=== PATIENT | male | born 1975 | race African-American/Black ===

== ENCOUNTER 2017-08-17 04:02 | Emergency (ER) | payer OTHER ==
[~2017-08-17] VITALS: Ht 177.8 cm; Wt 93.6 kg
[2017-08-17 04:04] VITALS: BP 134/89
[2017-08-17] MEDS ORDERED: CIPR100T3 PO (04:27)
== END 2017-08-17 05:07 | disposition home or self-care (01) ==
LOC: ED 05:00
DX: H66.92 Otitis media, unspecified, left ear (principal)
CPT/HCPCS: 99283